=== PATIENT | female | born 1955 | race American Indian/Alaskan Native ===

== ENCOUNTER → 2017-07-29 14:46 | Outpatient (CLI) | payer OTHER, MEDICAID, SELFPAY ==
[2017-07-29 15:23] LABS: Add Manual Diff / Slide Review NO; Basophils Percent Auto 0.9 % (0-2); Eosinophils Percent Auto 3.1 % (2-4); Hematocrit 34.1 % (36-46); Hemoglobin 11.6 g/dL (12.0-16.0); Lymphocytes Percent Auto 34.4 % (25-40); Mean Corpuscular HGB Conc 34.1 % (30-36); Mean Corpuscular Hemoglobin 32.8 PG (26-34); Mean Corpuscular Volume 96.3 fL (80-100); Monocytes Percent Auto 8.6 % (3-14); Neutrophils Absolute Auto 1100 /uL (3000-5900); Platelet Count 111 X10^3/uL (150-400); Red Blood Cell Count 3.55 X10^6/uL (4.0-5.2); Red Cell Distribution Width 12.9 % (11.6-14.8); White Blood Cell Count 2.1 X10^3/uL (4.5-11.0)
[2017-07-29 15:34] LABS: Alanine Aminotransferase 43 IU/L (9-52); Albumin 4.2 g/dL (3.5-5.0); Albumin Globulin Ratio 1.2 (1.0-2.8); Alkaline Phosphatase 99 U/L (38-126); Aspartate Aminotransferase 46 IU/L (14-36); Bilirubin Total 0.8 mg/dL (0.2-1.3); Blood Urea Nitrogen 39 mg/dL (7-17); Calcium 9.4 mg/dL (8.4-10.2); Carbon Dioxide 35 mmol/L (22-32); Chloride 89 mmol/L (98-107); Estimated Glomerular Filt Rate 7.7 mL/min (>60); Globulin 3.6 g/dL (1.7-4.1); Glucose 202 mg/dL (80-110); Sodium 137 mmol/L (137-145); Total Protein 7.8 g/dL (6.3-8.2)
[2017-07-29 16:10] LABS: Carcinoembryonic Antigen 3.6 ng/mL (0.1-3.0); HEMOLYSIS < 15 (0-50)
== END ==
PROVIDERS: PCP Family Medicine; Visit Provider Nurse Practitioner Gerontology
DX: C18.9 Malignant neoplasm of colon, unspecified (principal)
CPT/HCPCS: 36415; 80053; 82378; 85025

== ENCOUNTER → 2018-02-24 14:00 | Oncology outpatient (ONC) | payer OTHER, MEDICAID, SELFPAY ==
--- NOTE | 2017-08-12 12:36 | ONC.APRN.PN ---
Assessment and Plan (1) Malignant neoplasm of colon Current visit: No Status: Acute 08/12/17 14:05 Steph is a 61-year-old female with stage III colorectal carcinoma presenting for her 6 month clinical evaluation, surveillance exam. Reassuringly on exam today she has no clinical signs or symptoms of disease progression. CBC, CMP remain within expected limits for this patient with end-stage renal failure on dialysis. CEA is within patient baseline at 3.6 (3.2) She had surveillance CT of chest abdomen pelvis without contrast in February of 2017 which did not demonstrate any evidence of recurrence. Per NCCN guidelines the 1st 2 years after diagnosis/treatment imaging should be every 6 or 12 months. Given patient's significant comorbidities and no evidence on exam today of disease recurrence will plan for noncontrast CT of chest abdomen pelvis in 6 months to be followed by provider visit along with CBC CMP CEA. Additionally, I do believe the patient is due for her colonoscopy. She states she had this done within the past year at [facility]. I have requested records. - Time Spent with Patient 35 mins PN -Subjective Interval history: The patient is a 61 year old Female who is being seen in the clinic 08/12/2017. She carries a diagnosis of stage III colorectal carcinoma in clinical remission/surveillance since original diagnosis was made back in February 2016. Patient presents today for routine surveillance visit. Patient had a CT of the abdomen and pelvis without contrast (ESRD) on 02/23/2017 showing no evidence of recurrent disease. I do not se most recent colonoscopy pt reports it was at [facility] sometime this year. Patients new chief complaints at this time include: none. She remains on Wednesday dialysis, Dr. Flaherty is hand cloth cutter. She denies any new complaints whatsoever today. Overall feeling well. No change in bowel habits. No change in appetite, weight is stable. No change with activity tolerance. No nausea or abdominal pain. No new musculoskeletal pain. No headaches. No recent illnesses or infections. Past Medical History The patient's past medical history is significant for: 1) colon cancer. Stage IIIa (T3, N1b, M0). MMR intact (MSI-L). Diagnosis: 03/10/2016 colonoscopy with biopsy of the sigmoid colon at 35 cm. Pathology confirming an infiltrating adenocarcinoma moderately differentiated. IHC for mismatch region. Gene panel: MSH2, MSH6, MLH1, PMS2 all positive. 06/23/2016. Sigmoidectomy. Pathology confirming invasive adenocarcinoma moderately differentiated. Lesion measured 3 cm in length. Tumor invades through muscularis propria into subserosal adipose tissue but does not extend to the serosal surface. Margins were uninvolved at the proximal, distal, and circumferential. No LV I seen. No tumor deposits. 19 lymph nodes were identified 2 of which were positive for cancer. Clinical staging workup: 03/24/2016. CT abdomen pelvis with contrast. No evidence of sigmoid colon was seen. Incidental finding of splenomegaly with calcified superior splenic mass likely benign. Spleen measured 18 cm cranial caudad diameter. 07/30/2016 CT of the chest without contrast. Nonspecific small degree of free fluid within the peritoneal space along the hepatic and splenic borders of the upper abdomen. Otherwise no evidence to suggest distance spread. Prognosis: MMR intact (non-deficient). SEER 5-year OS for Stage IIIa colon cancer ~ 73% [facility] ACCENT online predictive tool: 3 year recurrence free probability after adjuvant oxaliplatin-based therapy equal to 83%. 5 year survival after oxaliplatin-based chemotherapy at 84%. Surveillance: -02/23/2017. CT abdomen and pelvis with contrast. No evidence of recurrence. 2) Chronic Kidney Failure. Etiology unknown. Started dialysis October 2009, M/W/F. Retort Furnace Operator is Dr. Mojica. 3) Cirrhosis. Clinical diagnosis in 2009. Presented with ascites. Child-Wolfe Score 5. Child Wolfe Class A red disease well compensated disease) 1 and 2 year survival rate at 100% and 85% respectively. 4) Hepatitis C. Diagnosed 2009. Never treated. 07/30/2016 Viral load reported at 312,000. HCV genotype 1A. 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 6) Diabetes diagnosed approximately 20 years ago. On insulin for the past 10 years. Lost half of her right foot in 2012 after complicating infection. Neuropathy in hands non painful, no ADL loss (Grade 1). Colorectal Resection Staging Colorectal Primary Tumor T3- invades subserosa Colorectal Regional Nodes N1- Metastasis 1-3 nodes Colorectal Metastasis M0-No distal metastasis Colorectal Histologic Grade Grade II Results - Imaging Additional studies: Procedures Other open incisional hernia repair with graft or prosthesis (10/10/13) Home Medications and Allergies Home Medications Medication Instructions Recorded Confirmed Type folic acid 1 mg PO BID #0 06/27/10 History furosemide 40 mg PO BID #0 06/27/10 History metoprolol tartrate 25 mg PO BID #0 07/23/16 History atorvastatin [Lipitor] 10 mg PO DAILY 08/12/17 08/12/17 History sevelamer carbonate [Renvela] 1,600 mg PO TID 08/12/17 08/12/17 History Allergies Allergy/AdvReac Type Severity Reaction Status Date / Time levofloxacin [LEVOFLOXACIN] Allergy Mild RASH Unverified 06/02/17 12:17 acetaminophen [From PERCOCET] Allergy Unknown Unverified 06/02/17 12:17 oxycodone [From PERCOCET] Allergy Unknown Unverified 06/02/17 12:17 Exam Narrative: chronically ill - Constitutional positive no acute distress - Routine HEENT Exam Head: Present: normocephalic, atraumatic Eye: Present: conjunctivae pink. Absent: conjunctival icterus, scleral injection ENT: Present: mucous membranes moist - Routine Neck Exam Present: supple. Absent: lymphadenopathy - Routine Chest/Breast/Axilla Exam Axillae: Absent: lymphadenopathy, mass, tenderness - Routine Respiratory Exam Present: Clear to auscultation bilaterally, decreased breath sounds. Absent: rales, rhonchi, wheezes - Routine Cardiovascular Exam Present: RRR. Absent: murmur, gallop, rubs - Routine Abdominal Exam Present: soft, normoactive bowel sounds. Absent: tenderness, distended, organomegaly, mass Palpation/Percussion: Absent: fluid waves - Routine Extremities Exam Absent: edema, calf tenderness - Routine Back/Spine Exam Back/Spine: Absent: vertebral tenderness - Routine Skin Exam Present: intact, normal turgor. Absent: petechiae, rash - Routine Neurological Exam Present: alert, oriented X3, CN II-XII intact. Absent: vision grossly intact - Routine Psychiatric Exam Present: normal affect, normal thought process
--- NOTE | 2017-08-12 12:43 | P.PNONC_ITS ---
Assessment and Plan (1) Malignant neoplasm of colon Current visit: No Status: Acute 08/12/17 14:05 Steph is a 61-year-old female with stage III colorectal carcinoma presenting for her 6 month clinical evaluation, surveillance exam. Reassuringly on exam today she has no clinical signs or symptoms of disease progression. CBC, CMP remain within expected limits for this patient with end-stage renal failure on dialysis. CEA is within patient baseline at 3.6 (3.2) She had surveillance CT of chest abdomen pelvis without contrast in February of 2017 which did not demonstrate any evidence of recurrence. Per NCCN guidelines the 1st 2 years after diagnosis/treatment imaging should be every 6 or 12 months. Given patient's significant comorbidities and no evidence on exam today of disease recurrence will plan for noncontrast CT of chest abdomen pelvis in 6 months to be followed by provider visit along with CBC CMP CEA. Additionally, I do believe the patient is due for her colonoscopy. She states she had this done within the past year at [facility]. I have requested records. - Time Spent with Patient 35 mins PN -Subjective Interval history: The patient is a 61 year old Female who is being seen in the clinic 08/12/2017. She carries a diagnosis of stage III colorectal carcinoma in clinical remission/ surveillance since original diagnosis was made back in February 2016. Patient presents today for routine surveillance visit. Patient had a CT of the abdomen and pelvis without contrast (ESRD) on 02/23/2017 showing no evidence of recurrent disease. I do not se most recent colonoscopy pt reports it was at [facility] sometime this year. Patients new chief complaints at this time include: none. 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 She denies any new complaints whatsoever today. Overall feeling well. No change in bowel habits. No change in appetite, weight is stable. No change with activity tolerance. No nausea or abdominal pain. No new musculoskeletal pain. No headaches. No recent illnesses or infections. Past Medical History The patient's past medical history is significant for: 1) colon cancer. Stage IIIa (T3, N1b, M0). MMR intact (MSI-L). Diagnosis: 03/10/2016 colonoscopy with biopsy of the sigmoid colon at 35 cm. Pathology confirming an infiltrating adenocarcinoma moderately differentiated. IHC for mismatch region. Gene panel: MSH2, MSH6, MLH1, PMS2 all positive. 06/23/2016. Sigmoidectomy. Pathology confirming invasive adenocarcinoma moderately differentiated. Lesion measured 3 cm in length. Tumor invades through muscularis propria into subserosal adipose tissue but does not extend to the serosal surface. Margins were uninvolved at the proximal, distal, and circumferential. No LV I seen. No tumor deposits. 19 lymph nodes were identified 2 of which were positive for cancer. Clinical staging workup: 03/24/2016. CT abdomen pelvis with contrast. No evidence of sigmoid colon was seen. Incidental finding of splenomegaly with calcified superior splenic mass likely benign. Spleen measured 18 cm cranial caudad diameter. 07/30/2016 CT of the chest without contrast. Nonspecific small degree of free fluid within the peritoneal space along the hepatic and splenic borders of the upper abdomen. Otherwise no evidence to suggest distance spread. Prognosis: MMR intact (non-deficient). SEER 5-year OS for Stage IIIa colon cancer ~ 73% [facility] ACCENT online predictive tool: 3 year recurrence free probability after adjuvant oxaliplatin-based therapy equal to 83%. 5 year survival after oxaliplatin-based chemotherapy at 84%. Surveillance: -02/23/2017. CT abdomen and pelvis with contrast. No evidence of recurrence. 2) Chronic Kidney Failure. Etiology unknown. Started dialysis October 2009, M /W/F. Tax Collector is Dr. Mojica. 3) Cirrhosis. Clinical diagnosis in 2009. Presented with ascites. Child-Wolfe Score 5. Child Wolfe Class A red disease well compensated disease) 1 and 2 year survival rate at 100% and 85% respectively. 4) Hepatitis C. Diagnosed 2009. Never treated. 07/30/2016 Viral load reported at 312,000. HCV genotype 1A. 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 6) Diabetes diagnosed approximately 20 years ago. On insulin for the past 10 years. Lost half of her right foot in 2012 after complicating infection. Neuropathy in hands non painful, no ADL loss (Grade 1). Colorectal Resection Staging Colorectal Primary Tumor T3- invades subserosa Colorectal Regional Nodes N1- Metastasis 1-3 nodes Colorectal Metastasis M0-No distal metastasis Colorectal Histologic Grade Grade II Results - Imaging Additional studies: Procedures Other open incisional hernia repair with graft or prosthesis (10/10/13) Home Medications and Allergies Home Medications Medication Instructions Recorded Confirmed Type folic acid 1 mg PO BID #0 06/27/10 History furosemide 40 mg PO BID #0 06/27/10 History metoprolol tartrate 25 mg PO BID #0 07/23/16 History atorvastatin [Lipitor] 10 mg PO DAILY 08/12/17 08/12/17 History sevelamer carbonate [Renvela] 1,600 mg PO TID 08/12/17 08/12/17 History Allergies Allergy/AdvReac Type Severity Reaction Status Date / Time levofloxacin [LEVOFLOXACIN] Allergy Mild RASH Unverified 06/02/17 12:17 acetaminophen [From PERCOCET] Allergy Unknown Unverified 06/02/17 12:17 oxycodone [From PERCOCET] Allergy Unknown Unverified 06/02/17 12:17 Exam Narrative: chronically ill - Constitutional positive no acute distress - Routine HEENT Exam Head: Present: normocephalic, atraumatic Eye: Present: conjunctivae pink. Absent: conjunctival icterus, scleral injection ENT: Present: mucous membranes moist - Routine Neck Exam Present: supple. Absent: lymphadenopathy - Routine Chest/Breast/Axilla Exam Axillae: Absent: lymphadenopathy, mass, tenderness - Routine Respiratory Exam Present: Clear to auscultation bilaterally, decreased breath sounds. Absent: rales, rhonchi, wheezes - Routine Cardiovascular Exam Present: RRR. Absent: murmur, gallop, rubs - Routine Abdominal Exam Present: soft, normoactive bowel sounds. Absent: tenderness, distended, organomegaly, mass Palpation/Percussion: Absent: fluid waves - Routine Extremities Exam Absent: edema, calf tenderness - Routine Back/Spine Exam Back/Spine: Absent: vertebral tenderness - Routine Skin Exam Present: intact, normal turgor. Absent: petechiae, rash - Routine Neurological Exam Present: alert, oriented X3, CN II-XII intact. Absent: vision grossly intact - Routine Psychiatric Exam Present: normal affect, normal thought process
[2017-08-12 13:16] VITALS: BP 142/81; PULSE 68; RESP 18; TEMP 36.2; O2SAT 100
--- NOTE | 2018-02-17 08:35 | ONC.APRN.PN ---
PN -Subjective Interval history: The patient is a 62 year old Female who is being seen in the clinic 02/17/2018. She carries a diagnosis of stage III colorectal carcinoma in clinical remission/surveillance since original diagnosis was made back in February 2016. Patient presents today for routine surveillance visit. Patient had a CT of the abdomen and pelvis without contrast (ESRD) on 02/23/2017 showing no evidence of recurrent disease. I do not see most recent colonoscopy pt reports it was at [facility] sometime this year. Patients new chief complaints at this time include: none. 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 She denies any new complaints whatsoever today. Overall feeling well. No change in bowel habits. No change in appetite, weight is stable. No change with activity tolerance. No nausea or abdominal pain. No new musculoskeletal pain. No headaches. No recent illnesses or infections. Past Medical History The patient's past medical history is significant for: 1) colon cancer. Stage IIIa (T3, N1b, M0). MMR intact (MSI-L). Diagnosis: 03/10/2016 colonoscopy with biopsy of the sigmoid colon at 35 cm. Pathology confirming an infiltrating adenocarcinoma moderately differentiated. IHC for mismatch region. Gene panel: MSH2, MSH6, MLH1, PMS2 all positive. 06/23/2016. Sigmoidectomy. Pathology confirming invasive adenocarcinoma moderately differentiated. Lesion measured 3 cm in length. Tumor invades through muscularis propria into subserosal adipose tissue but does not extend to the serosal surface. Margins were uninvolved at the proximal, distal, and circumferential. No LV I seen. No tumor deposits. 19 lymph nodes were identified 2 of which were positive for cancer. Clinical staging workup: 03/24/2016. CT abdomen pelvis with contrast. No evidence of sigmoid colon was seen. Incidental finding of splenomegaly with calcified superior splenic mass likely benign. Spleen measured 18 cm cranial caudad diameter. 07/30/2016 CT of the chest without contrast. Nonspecific small degree of free fluid within the peritoneal space along the hepatic and splenic borders of the upper abdomen. Otherwise no evidence to suggest distance spread. Prognosis: MMR intact (non-deficient). SEER 5-year OS for Stage IIIa colon cancer ~ 73% [facility] ACCENT online predictive tool: 3 year recurrence free probability after adjuvant oxaliplatin-based therapy equal to 83%. 5 year survival after oxaliplatin-based chemotherapy at 84%. Surveillance: -02/23/2017. CT abdomen and pelvis with contrast. No evidence of recurrence. 2) Chronic Kidney Failure. Etiology unknown. Started dialysis October 2009, M/W/F. Safe Technician is Dr. Mojica. 3) Cirrhosis. Clinical diagnosis in 2009. Presented with ascites. Child-Wolfe Score 5. Child Wolfe Class A red disease well compensated disease) 1 and 2 year survival rate at 100% and 85% respectively. 4) Hepatitis C. Diagnosed 2009. Never treated. 07/30/2016 Viral load reported at 312,000. HCV genotype 1A. 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 6) Diabetes diagnosed approximately 20 years ago. On insulin for the past 10 years. Lost half of her right foot in 2012 after complicating infection. Neuropathy in hands non painful, no ADL loss (Grade 1). Colorectal Resection Staging Colorectal Primary Tumor T3- invades subserosa Colorectal Regional Nodes N1- Metastasis 1-3 nodes Colorectal Metastasis M0-No distal metastasis Colorectal Histologic Grade Grade II Home Medications and Allergies Home Medications Medication Instructions Recorded Confirmed Type folic acid 1 mg PO BID #0 06/27/10 History furosemide 40 mg PO BID #0 06/27/10 History metoprolol tartrate 25 mg PO BID #0 07/23/16 History atorvastatin [Lipitor] 10 mg PO DAILY 08/12/17 08/12/17 History sevelamer carbonate [Renvela] 1,600 mg PO TID 08/12/17 08/12/17 History Allergies Allergy/AdvReac Type Severity Reaction Status Date / Time levofloxacin [LEVOFLOXACIN] Allergy Mild RASH Unverified 06/02/17 12:17 acetaminophen [From PERCOCET] Allergy Unknown Unverified 06/02/17 12:17 oxycodone [From PERCOCET] Allergy Unknown Unverified 06/02/17 12:17 Results - Imaging Additional studies: Procedures Other open incisional hernia repair with graft or prosthesis (10/10/13) Assessment and Plan (1) Malignant neoplasm of colon Status: Acute The patient is a 62-year-old female who carries a diagnosis of stage III colorectal carcinoma. Reassuringly on exam today she has no clinical signs or symptoms of disease recurrence. CBC, CMP remain within expected limits for this patient with end-stage renal disease on dialysis. CEA is within patient baseline
[2018-02-24 14:09] LABS: Add Manual Diff / Slide Review NO; Basophils Percent Auto 1.7 % (0-2); Eosinophils Percent Auto 2.7 % (2-4); Hematocrit 36.6 % (36-46); Hemoglobin 12.3 g/dL (12.0-16.0); Lymphocytes Percent Auto 28.2 % (25-40); Mean Corpuscular HGB Conc 33.5 % (30-36); Mean Corpuscular Hemoglobin 31.4 PG (26-34); Mean Corpuscular Volume 93.8 fL (80-100); Monocytes Percent Auto 7.6 % (3-14); Neutrophils Absolute Auto 1300 /uL (1500-7000); Neutrophils Percent Auto 59.8 % (50-75); Platelet Count 138 X10^3/uL (150-400); Red Cell Distribution Width 13.9 % (11.6-14.8); White Blood Cell Count 2.2 X10^3/uL (4.5-11.0)
[2018-02-24 14:28] LABS: Alanine Aminotransferase 23 IU/L (9-52); Albumin 4.2 g/dL (3.5-5.0); Albumin Globulin Ratio 1.1 (1.0-2.8); Alkaline Phosphatase 78 U/L (38-126); Aspartate Aminotransferase 30 IU/L (14-36); BUN Creatinine Ratio 5.7 (6-22); Bilirubin Total 0.6 mg/dL (0.2-1.3); Blood Urea Nitrogen 30 mg/dL (7-17); Calcium 10.2 mg/dL (8.4-10.2); Carbon Dioxide 31 mmol/L (22-32); Chloride 92 mmol/L (98-107); Estimated Glomerular Filt Rate 8.2 mL/min (>60); Globulin 3.7 g/dL (1.7-4.1); Glucose 209 mg/dL (80-110); HEMOLYSIS < 15 (0-50); Potassium 4.8 mmol/L (3.4-5.1); Sodium 136 mmol/L (137-145); Total Protein 7.9 g/dL (6.3-8.2)
[2018-02-24 14:36] VITALS: BP 150/60; PULSE 62; RESP 18; TEMP 36.4; O2SAT 100
[2018-02-24 14:59] LABS: Carcinoembryonic Antigen 2.5 ng/mL (0.1-3.0)
--- NOTE | 2018-02-24 15:08 | P.PNONC_ITS ---
PN -Subjective Interval history: The patient is a 62-year-old female who is being seen in the clinic February 24, 2018. She carries a diagnosis of stage III colorectal carcinoma with original diagnosis in 2017. She presents today for routine 6 month surveillance visit. her daughter accompanies her to the clinic today. Since her previous visit August 12, 2017 patient states she has no acute complaints. Overall her health is ?good?. She is an end-stage renal patient on dialysis Wednesday. Most recent colonoscopy was at [facility] we do not have the records pt thinks it was maybe 1 year ago however she is not certain. Front office staff is calling [facility] now to request these notes. Patient states her bowel movements are normal. She states she has a daily bowel movement. No blood noted in stool. Activity tolerance is unchanged. Appetite is stable, weight is stable. Specifically no early satiety. No new pain, no new lumps or bumps. Past Medical History The patient's past medical history is significant for: 1) colon cancer. Stage IIIa (T3, N1b, M0). MMR intact (MSI-L). Diagnosis: 03/10/2016 colonoscopy with biopsy of the sigmoid colon at 35 cm. Pathology confirming an infiltrating adenocarcinoma moderately differentiated. IHC for mismatch region. Gene panel: MSH2, MSH6, MLH1, PMS2 all positive. 06/23/2016. Sigmoidectomy. Pathology confirming invasive adenocarcinoma moderately differentiated. Lesion measured 3 cm in length. Tumor invades through muscularis propria into subserosal adipose tissue but does not extend to the serosal surface. Margins were uninvolved at the proximal, distal, and circumferential. No LV I seen. No tumor deposits. 19 lymph nodes were identified 2 of which were positive for cancer. Clinical staging workup: 03/24/2016. CT abdomen pelvis with contrast. No evidence of sigmoid colon was seen. Incidental finding of splenomegaly with calcified superior splenic mass likely benign. Spleen measured 18 cm cranial caudad diameter. 07/30/2016 CT of the chest without contrast. Nonspecific small degree of free fluid within the peritoneal space along the hepatic and splenic borders of the upper abdomen. Otherwise no evidence to suggest distance spread. Prognosis: MMR intact (non-deficient). SEER 5-year OS for Stage IIIa colon cancer ~ 73% [facility] ACCENT online predictive tool: 3 year recurrence free probability after adjuvant oxaliplatin-based therapy equal to 83%. 5 year survival after oxaliplatin-based chemotherapy at 84%. Surveillance: -02/23/2017. CT abdomen and pelvis with contrast. No evidence of recurrence. 2) Chronic Kidney Failure. Etiology unknown. Started dialysis October 2009, M /W/F. [employer] is Dr. Mojica. 3) Cirrhosis. Clinical diagnosis in 2009. Presented with ascites. Child-Wolfe Score 5. Child Wolfe Class A red disease well compensated disease) 1 and 2 year survival rate at 100% and 85% respectively. 4) Hepatitis C. Diagnosed 2009. Never treated. 07/30/2016 Viral load reported at 312,000. HCV genotype 1A. 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 6) Diabetes diagnosed approximately 20 years ago. On insulin for the past 10 years. Lost half of her right foot in 2012 after complicating infection. Neuropathy in hands non painful, no ADL loss (Grade 1). Colorectal Resection Staging Colorectal Primary Tumor T3- invades subserosa Colorectal Regional Nodes N1- Metastasis 1-3 nodes Colorectal Metastasis M0-No distal metastasis Colorectal Histologic Grade Grade II Home Medications and Allergies Home Medications Medication Instructions Recorded Confirmed Type furosemide 40 mg PO BID #0 06/27/10 History metoprolol tartrate 25 mg PO BID #0 07/23/16 History atorvastatin [Lipitor] 10 mg PO DAILY 08/12/17 08/12/17 History sevelamer carbonate [Renvela] 1,600 mg PO TID 08/12/17 08/12/17 History Allergies Allergy/AdvReac Type Severity Reaction Status Date / Time levofloxacin [LEVOFLOXACIN] Allergy Mild RASH Unverified 06/02/17 12:17 acetaminophen [From PERCOCET] Allergy Unknown Unverified 06/02/17 12:17 oxycodone [From PERCOCET] Allergy Unknown Unverified 06/02/17 12:17 Exam - Constitutional positive no acute distress, positive thin - Routine HEENT Exam Eye: Present: conjunctivae pink. Absent: conjunctival icterus, scleral injection ENT: Present: mucous membranes moist, oropharynx clear Comments: edentulous - Routine Neck Exam Present: supple. Absent: lymphadenopathy - Routine Chest/Breast/Axilla Exam Axillae: Absent: lymphadenopathy, mass, tenderness - Routine Respiratory Exam Present: Clear to auscultation bilaterally. Absent: rales, rhonchi, wheezes - Routine Cardiovascular Exam Present: RRR, S1, S2. Absent: murmur, gallop, rubs, JVD - Routine Abdominal Exam Present: soft, normoactive bowel sounds. Absent: tenderness, distended, rebound , guarding, organomegaly - Routine Extremities Exam Absent: edema, calf tenderness - Routine Skin Exam Present: intact, normal turgor. Absent: rash - Routine Neurological Exam Present: alert, oriented X3 - Routine Psychiatric Exam Present: normal affect Results - Labs Laboratory Last Values WBC 2.2 X10^3/uL (4.5-11.0) L 02/24/18 13:51 RBC 3.90 X10^6/uL (4.0-5.2) L 02/24/18 13:51 Hgb 12.3 g/dL (12.0-16.0) 02/24/18 13:51 Hct 36.6 % (36-46) 02/24/18 13:51 MCV 93.8 fL (80-100) 02/24/18 13:51 MCH 31.4 PG (26-34) 02/24/18 13:51 MCHC 33.5 % (30-36) 02/24/18 13:51 RDW 13.9 % (11.6-14.8) 02/24/18 13:51 Plt Count 138 X10^3/uL (150-400) L 02/24/18 13:51 Neut % (Auto) 59.8 % (50-75) 02/24/18 13:51 Lymph % (Auto) 28.2 % (25-40) 02/24/18 13:51 [place] % (Auto) 7.6 % (3-14) 02/24/18 13:51 Eos % (Auto) 2.7 % (2-4) 02/24/18 13:51 Baso % (Auto) 1.7 % (0-2) 02/24/18 13:51 Neut # (Auto) 1300 /uL (9020-8435) L 02/24/18 13:51 Sodium 136 mmol/L (137-145) L 02/24/18 13:51 Potassium 4.8 mmol/L (3.4-5.1) 02/24/18 13:51 Chloride 92 mmol/L (98-107) L 02/24/18 13:51 Carbon Dioxide 31 mmol/L (22-32) 02/24/18 13:51 BUN 30 mg/dL (7-17) H 02/24/18 13:51 Creatinine 5.30 mg/dL (0.52-1.04) H 02/24/18 13:51 Estimated GFR 8.2 mL/min (>60) L 02/24/18 13:51 BUN/Creatinine Ratio 5.7 (6-22) L 02/24/18 13:51 Glucose 209 mg/dL (80-110) H 02/24/18 13:51 Calcium 10.2 mg/dL (8.4-10.2) 02/24/18 13:51 Total Bilirubin 0.6 mg/dL (0.2-1.3) 02/24/18 13:51 AST 30 IU/L (14-36) 02/24/18 13:51 ALT 23 IU/L (9-52) 02/24/18 13:51 Alkaline Phosphatase 78 U/L (38-126) 02/24/18 13:51 Total Protein 7.9 g/dL (6.3-8.2) 02/24/18 13:51 Albumin 4.2 g/dL (3.5-5.0) 02/24/18 13:51 Globulin 3.7 g/dL (1.7-4.1) 02/24/18 13:51 Albumin/Globulin Ratio 1.1 (1.0-2.8) 02/24/18 13:51 Carcinoembryonic Ag 2.5 ng/mL (0.1-3.0) 02/24/18 13:51 - Imaging Additional studies: Procedures Other open incisional hernia repair with graft or prosthesis (10/10/13) Assessment and Plan (1) Malignant neoplasm of colon Current visit: No Status: Acute The patient is a 62-year-old female who carries a diagnosis of stage III colorectal carcinoma. Reassuringly on exam today no clinical signs or symptoms to suggest disease recurrence. CEA remains pending at time of dictation. I do believe patient is due if not overdue for her colonoscopy. She has these done at [facility]. Front office staff is calling now to request operative report from her most recent colonoscopy which I do believe will be about 2 years ago. She is also due for surveillance imaging. Per NCCN guidelines with stage III colorectal carcinoma for the 1st 5 years imaging every 6-12 months. Most recent imaging was February 2017. Patient has elected to forego imaging stating I feel fine. I discussed with th pt I am ok waiting if her CEA is normal, we are still waiting for those results. If CEA is normal we will have the pt RTC in 6 months for a provider visit with a CT prior so we can review results at that appointment. If CEA is elevated this plan will certainly change. the pt and her daughter verbalize understanding. I will f/u re: CEA and colonoscopy. Future visit will be based on these findings. - Time Spent with Patient 25 mins
== END ==
PROVIDERS: PCP Family Medicine; Visit Provider Nurse Practitioner Gerontology
DX: Z08 Encounter for follow-up examination after completed treatment for malignant neoplasm (principal); Z85.038 Personal history of other malignant neoplasm of large intestine; E11.22 Type 2 diabetes mellitus with diabetic chronic kidney disease; N18.6 End stage renal disease; Z99.2 Dependence on renal dialysis
CPT/HCPCS: 36415; 80053; 82378; 85025; 99213; 99214

== ENCOUNTER → 2019-05-24 16:33 | Outpatient (CLI) | payer OTHER, MEDICAID, SELFPAY ==
[2019-05-24 17:02] LABS: Hematocrit 28.4 % (36-46); Hemoglobin 9.4 g/dL (12.0-16.0); Mean Corpuscular HGB Conc 33.2 % (30-36); Mean Corpuscular Hemoglobin 31.2 PG (26-34); Mean Corpuscular Volume 93.9 fL (80-100); Platelet Count 105 X10^3/uL (150-400); Red Blood Cell Count 3.02 X10^6/uL (4.0-5.2); Red Cell Distribution Width 17.2 % (11.6-14.8)
[2019-05-24 17:06] LABS: Add Manual Diff / Slide Review YES; White Blood Cell Count 1.3 X10^3/uL (4.5-11.0)
[2019-05-24 17:14] LABS: BUN Creatinine Ratio 3.2 (6-22); Blood Urea Nitrogen 9 mg/dL (7-17); Calcium 8.8 mg/dL (8.4-10.2); Carbon Dioxide 36 mmol/L (22-32); Chloride 96 mmol/L (98-107); Estimated Glomerular Filt Rate 17.3 mL/min (>60); Glucose 105 mg/dL (80-110); HEMOLYSIS < 15 (0-50); Potassium 3.5 mmol/L (3.4-5.1); Sodium 138 mmol/L (137-145)
[2019-05-24 17:42] LABS: Free T3, Triiodothyronine Free 1.87 pg/mL (2.77-5.27); Free T4, Direct Thyroxine 1.48 ng/dL (0.78-2.19); T4 Total Thyroxine 8.26 ug/dL (5.5-11.0)
[2019-05-24 17:46] LABS: Anisocytosis 1+; Basophilic Stippling 1+; Neutrophils Absolute Manual 923 /uL (3000-5900); Polychromasia 1+; Rouleaux 2+; Total Cells Counted 100
== END ==
PROVIDERS: PCP Family Medicine; Referring Provider Nurse Practitioner; Visit Provider Nurse Practitioner
DX: N18.6 End stage renal disease (principal); B19.20 Unspecified viral hepatitis C without hepatic coma
CPT/HCPCS: 36415; 80048; 84436; 84439; 84481; 85025